=== PATIENT | male | born 1980 | race Two or more races ===

== ENCOUNTER 2020-05-08 16:05 | Emergency (ER) | payer SELFPAY ==
[~2020-05-08] VITALS: Ht 180.3 cm; Wt 108.9 kg
[2020-05-08 16:10] VITALS: BP 87/61
--- NOTE | 2020-05-08 16:30 | NUR ---
ED Nurse Note: pt arrived with [id number] due to pt "has mouse in anus". Pt is AOx4, calm and cooperative to care, VSS, on RA, afebrile on triage.
--- NOTE | 2020-05-08 17:00 | Diagnostic Imaging Report ---
Indication: Abdominal pain. Possible foreign body Technique: XRAY Abdomen 2v Comparison: None Findings: Bowel gas pattern is nonobstructive. No evidence of free intraperitoneal air. There is a rounded density projecting over the rectum on frontal view which has the shape of a button; this is not seen on the lateral view and is likely external to the patient. There is no acute osseous abnormality. IMPRESSION: Nonobstructive bowel gas pattern. No radiopaque foreign body. More sensitive evaluation can be made with CT as clinically indicated.
--- NOTE | 2020-05-08 17:08 | Emergency Room Report ---
History of Present Illness General Chief Complaint: Foreign Body Source: Patient Present Illness HPI 40-year-old male, no past medical history no surgical history phobia of mice, states he thinks a mouse crawled up his butt hole prior to arrival he feels a sensation, patient denies any aggravating relieving factors severity is mild, constant patient wants to make sure everything is okay Allergies: Coded Allergies: No Known Allergies (Unverified , 05/08/20) COVID-19 Screening Contact w/high risk pt: No Experienced COVID-19 symptoms?: No COVID-19 Testing performed [employer]IC: No Patient History Past Medical History: see triage record Reviewed Nursing Documentation: PMH: Agreed; PSxH: Agreed Nursing Documentation-PMH Past Medical History: No Stated History Review of Systems All Other Systems: negative except mentioned in HPI Physical Exam Vital Signs Date Time Temp Pulse Resp B/P (MAP) Pulse Ox O2 Delivery O2 Flow Rate FiO2 05/08/20 15:53 99.0 170 20 87/61 (70) 96 Room Air General Appearance: well appearing, no apparent distress Head: normocephalic, atraumatic ENT: hearing grossly normal, normal voice Neck: full range of motion, supple Respiratory: no respiratory distress, speaking full sentences Gastrointestinal: non tender, soft, other - Rfid Analyst Natalya Button RN, anus unremarkable Musculoskeletal: no calf tenderness Neurologic: alert, normal gait Psychiatric: mood/affect normal Skin: no rash Medical Decision Making Diagnostic Impression: Primary Impression: Sensation of foreign body ER Course 40-year-old male presents with foreign body sensation X-ray negative, exam completely unremarkable Disposition home with return precautions follow-up with PCP Procedure: XRAY Abdomen 2v Indication: Abdominal pain. Possible foreign body Technique: XRAY Abdomen 2v Comparison: None Findings: Bowel gas pattern is nonobstructive. No evidence of free intrape ritoneal air. There is a rounded density projecting over the rectum on frontal view which has the shape of a button; this is not seen on the lateral view and is likely external to the patient. There is no acute osseous abnormality. IMPRESSION: Nonobstructive bowel gas pattern. No radiopaque foreign body. More sensitive evaluation can be made with CT as clinically indicated. Dictated By: Benji Bonilla M.D. Electronically Signed By:Benji Bonilla M.D. Signed Date/Time05/08/20 2916 CC: David Metcalf MD Last Vital Signs Date Time Temp Pulse Resp B/P (MAP) Pulse Ox O2 Delivery O2 Flow Rate FiO2 05/08/20 15:53 99.0 170 20 87/61 (70) 96 Room Air Disposition: HOME, SELF-CARE Condition: Stable Referrals: [facility] Patient Instructions: Medical Screening Exam Additional Instructions: The patient was provided with discharge instructions, notified to follow-up with a primary care doctor and or specialist in the next 24-48 hours, and to return to the ED if they have worsening of their symptoms. Please note that this report is being documented using studdex technology. This can lead to erroneous entry secondary to incorrect interpretation by the dictating instrument. David Metcalf MD May 08, 2020 17:08
[2020-05-08 17:15] VITALS: BP 98/68
--- NOTE | 2020-05-08 17:15 | NUR ---
ED Nurse Note: Pt cleared by health care Provider for discharge. DC instructions were given and explained to pt and verbalized understanding of teachings. All medical deviecs such as ID band removed. Pt is AAO x4, ambulatory and left with all personal belongings. HEART RATE now 82 bpm.
== END 2020-05-08 17:15 | disposition home or self-care (01) ==
LOC: EDBD 16:05 → EMR 17:15
DX: R19.8 Other specified symptoms and signs involving the digestive system and abdomen (principal)
CPT/HCPCS: 74019; 99283